=== PATIENT | male | born 1950 | race Caucasian/White ===

== ENCOUNTER 2022-12-18 07:56 | Outpatient (AMB) | payer MEDICARE, SELFPAY ==
--- NOTE | 2022-12-18 08:28 | MHC.OFFWIV ---
Intake Vital Signs 12/18/22 08:32 Weight 190 lb BP 130/84 Blood Pressure Location Lt brachial Position Sitting Respiration 16 Pulse 63 Pulse Source Pulse Oximeter Temp 96.1 F L Temp Source Skin Pulse Oximetry (%) 96 Oxygen Delivery Method Room Air Intake Visit Reasons: ear pain/blocked Intake Note: c/o itchy, painful and blocked since saturday Patient Tobacco Use Status: Never used Tobacco Pediatric Physiatrist Required: No Accompanied by: Self / Same As Patient Allergies No Known Allergies Allergy (Verified 10/11/22 08:41) Medication List - Last Reconciled 12/18/22 by Nina Perez, RN apixaban (Eliquis) 5 mg PO BID atorvastatin 10 mg PO DAILY verapamil ER 180 mg PO DAILY HPI ear pain/blocked HPI Details 72 y/o male presents with complaints of bilateral ear pain/feels blocked. He reports symptoms x3 days. He has been using debrox drops yesterday. He reports decreased hearing. Onset 12/16/22 Location both ears Duration 3rd day Characteristics of symptom or complaint blocked, painful, itchy ears PFSH Social History Patient Tobacco Use Status: Never used Tobacco Review of Systems Const Denies chills, Denies fatigue, Denies fever(s), Denies headache(s) and Denies weakness ENT Denies dizziness and Denies headache(s) Card Denies dyspnea Resp Denies cough, Denies dyspnea, Denies wheezing and Denies other (shortness of breath) Musc Denies numbness and Denies tingling Neuro Denies dizziness, Denies headache(s), Denies numbness, Denies tingling and Denies weakness Psych Denies anxiety and Denies depression Endo Denies fatigue Aller/Immun Denies wheezing Physical Exam Vital Signs: Last Vital Signs Temp 96.1 F L 12/18/22 08:32 Pulse 63 12/18/22 08:32 Resp 16 12/18/22 08:32 BP 130/84 12/18/22 08:32 Pulse Ox 96 12/18/22 08:32 Oxygen Delivery Method Room Air 12/18/22 08:32 Const General: well developed; No acute distress Nutritional Appearance: well nourished Orientation/consciousness: patient oriented x3 HEENT Other: Mild swelling of the ear canal Head: Yes normocephalic and Yes atraumatic Eyes General: appearance normal, both eyes and all related structures Pupils: Equal, round and reactive pupils present EOM: EOMs intact bilaterally Resp Effort & Inspection: normal respiratory effort Neuro General: patient oriented x3 and gait normal Cranial nerves: Yes Equal, round and reactive pupils present Psych Affect: normal affect Assessment & Plan Assessment & Plan (1) Ear pain: Code(s): H92.09 - Otalgia, unspecified ear Plan: Block in sensation and swelling with mild erythema of bilateral ear canals Also increased cerumen formation Likely otitis externa Start Ciprodex drops Call or return to office if improving in a few days or if worsens at any time (2) Otitis externa: Code(s): H60.90 - Unspecified otitis externa, unspecified ear Plan: As above Medications: New ciprofloxacin-dexamethasone 0.3-0.1 % (Ciprodex) 4 drps otic (ears) BID 7.5 mL 0RF 7 days Coding Level of Care Code Est Pt Level 3 (90287) Diagnoses Ear pain H92.09 Otitis externa H60.90
[2022-12-18 08:32] VITALS: BP 130/84; PULSE 63; RESP 16; TEMP 35.6; O2SAT 96
== END 2022-12-18 09:33 | disposition home or self-care (01) ==
PROVIDERS: Visit Provider Family Medicine
DX: H92.03 Otalgia, bilateral (principal); H60.93 Unspecified otitis externa, bilateral
CPT/HCPCS: 99213